=== PATIENT | female | born 1975 | race Hispanic/Latino ===

== ENCOUNTER 2022-11-08 21:05 | Emergency (ER) | payer MEDICAID, OTHER ==
[~2022-11-08] VITALS: Ht 162.6 cm; Wt 109.3 kg
[2022-11-08] MEDS ORDERED: LACTATED RINGERS 1000ML IV SCH (21:30)
[2022-11-08 21:32] LABS: BASOPHILS % (AUTO) 0.3 % (0.0-5.0); EOSINOPHILS % (AUTO) 0.3 % (0.0-8.0); HEMATOCRIT 30.9 % (36-48); LYMPHOCYTES % (AUTO) 13.7 % (21.0-51.0); MEAN CORPUSCULAR HEMOGLOBIN 25.9 pg (27.0-33.0); MEAN CORPUSCULAR HGB CONC 31.4 g/dL (32.0-36.0); MEAN CORPUSCULAR VOLUME 82.6 fL (79-99); MONOCYTES % (AUTO) 3.3 % (3.0-13.0); NEUTROPHILS % (AUTO) 81.4 % (40.0-77.0); PLATELET COUNT (AUTO) 359 K/uL (130-400); RED BLOOD CELL COUNT(AUTO) 3.74 MIL/uL (4.00-5.50); RED CELL DISTRIBUTION WIDTH 14.2 % (11.0-15.5); WHITE BLOOD COUNT (AUTO) 19.8 K/uL (4.8-10.8)
[2022-11-08 21:41] LABS: POTASSIUM 3.9 mmol/L (3.5-5.1)
[2022-11-08 21:52] LABS: ALBUMIN 2.9 g/dL (3.5-5.0)
[2022-11-08 22:05] LABS: APPEARANCE,URINE SLIGHTLY CLOUDY (CLEAR); BILIRUBIN,URINE NEGATIVE (NEGATIVE); COLOR,URINE YELLOW (YELLOW); GLUCOSE, URINE (UA) NEGATIVE (NEGATIVE); KETONES,URINE 5 mg/dL (NEGATIVE); LEUKOCYTE ESTERASE ,URINE NEGATIVE Leu/uL (NEGATIVE); NITRATE,URINE NEGATIVE (NEGATIVE); OCCULT BLOOD,URINE SMALL (NEGATIVE); PH,URINE 5.5 (5.0-8.0); PROTEIN,URINE 50 mg/dL (NEGATIVE)
[2022-11-08 22:08] LABS: BACTERIA,URINE RARE /HPF (None Seen); HYALINE CASTS, URINE 51-100 /LPF (0-1 /LPF); MUCUS,URINE MANY LPF (None Seen); SQUAMOUS EPITHELIAL CELL,UR FEW /HPF (0-2)
[2022-11-08 22:24] LABS: HEMATOCRIT 25.8 % (36-48)
[2022-11-08] MEDS ORDERED: TRANEXAMIC ACID 1000MG/10ML IJ STA (23:08)
[2022-11-08] MEDS ORDERED: DOXY-469 PO (23:17)
[2022-11-08] MEDS ORDERED: TRAN650T5 PO (23:17)
[2022-11-08] MEDS ORDERED: IRON-23 PO (23:19)
[2022-11-08] MEDS ORDERED: CEFTRIAXONE 1G VIAL IM ONE (23:30)
[2022-11-08 23:59] LABS: HEMATOCRIT 24.1 % (36-48)
[2022-11-09] MEDS ORDERED: MECLIZINE HCL 25 MG TABLET ONE (00:33)
[2022-11-09] MEDS ORDERED: MECLIZINE HCL 25 MG TABLET PO ONE (01:00)
[2022-11-09 01:57] LABS: HEMATOCRIT 24.8 % (36-48)
[2022-11-09 08:44] LABS: HEMATOCRIT 26.2 % (36-48)
[2022-11-09 09:03] VITALS: BP 119/61
[2022-11-09] MEDS ORDERED: TRANEXAMIC ACID 1000MG/10ML IJ ONE (10:00)
== END 2022-11-09 09:54 | disposition home or self-care (01) ==
LOC: EDH 21:05
DX: N93.9 Abnormal uterine and vaginal bleeding, unspecified (principal); D64.9 Anemia, unspecified; Z79.899 Other long term (current) drug therapy; Z98.890 Other specified postprocedural states
CPT/HCPCS: 99291; 96361; 96360; 76856; 71045; 84484; 80053; 85025; 86850; 86900; 86901; 86923; 87088; 81001; 36415 ×2; 93005; 96372; 85014 ×4; 85018 ×4; 36430; P9016; J7120; J3490; J0696